=== PATIENT | male | born 1975 | race American Indian/Alaskan Native ===

== ENCOUNTER 2016-05-06 12:06 | Emergency (ER) | payer SELFPAY ==
--- NOTE | 2016-05-06 18:28 | Emergency Department Report ---
Upper Extremity - HPI Chief Complaint: Extremity Injury, Upper Stated Complaint: LT HAND FOURTH FINGER INJURY Time Seen by Provider: 05/06/16 18:20 Upper Extremity: Left Ring Finger, Right Middle Finger Occurred When: 1 Day Mechanism: Other (slammed into the car door) Symptoms: Yes Pain with Movement, Yes Swelling, Yes Bruising/Ecchymosis, No Deformity, No Limited Range of Movement, No Numbness, No Weakness, No Laceration or Abrasion Other History: Patient reports he accidental slammed both hands in a car door. ED Review of Systems ROS: Stated complaint: LT HAND FOURTH FINGER INJURY Other details as noted in HPI Constitutional: denies: chills, diaphoresis, fever, malaise, weakness Respiratory: denies: cough, orthopnea, shortness of breath, SOB with exertion, SOB at rest, stridor, wheezing Cardiovascular: denies: chest pain, palpitations, dyspnea on exertion, orthopnea , edema, syncope, paroxysmal nocturnal dyspnea Musculoskeletal: arthralgia (both hands) Skin: denies: rash, lesions, change in color, change in hair/nails, pruritus Neurological: denies: headache, weakness, numbness, paresthesias, confusion, abnormal gait, vertigo Hematological/Lymphatic: denies: easy bleeding, easy bruising, swollen glands ED Past Medical Hx - Past Medical History Previous Medical History?: No - Surgical History Past Surgical History?: No - Social History Smoking Status: Former Smoker Substance Use Type: Alcohol, Non Opiate Pain - Medications Home Medications: Home Medications Medication Instructions Recorded Confirmed Last Taken Type Ibuprofen [Motrin 800 MG tab] 800 mg PO Q8HR PRN #30 tablet 05/06/16 Unknown Rx Upper Extremity Exam - Exam General: Vital signs noted. No distress. Alert and acting appropriately. Head and Torso: No HEENT Abnormality, No Neck Tenderness, No Chest/Lungs Abnormality, No Abdominal Tenderness, No Back Tenderness Shoulder Exam: Yes Normal Range of Motion in Shoulder, No Shoulder Tenderness, No Clavicle Tenderness, No Shoulder Deformity, No AC Joint Tenderness Arm Exam: No Arm/Humerus Tenderness, No Arm Deformity Elbow: No Elbow Tenderness, No Normal Range of Motion in Elbow, No Elbow Deformity Forearm: No Forearm Tenderness, No Forearm Deformity, No Pain with Pronation, No Pain with Supination Wrist: Yes Normal ROM in Wrist, No Wrist Tenderness, No Wrist Deformity, No Snuffbox Tenderness, No Pain with Axial Thumb Compression Hand: Yes Hand Tenderness (left ring finger, right middle finger), Yes Digit Tenderness (with palpation), Yes Normal ROM in Digit(s), No Hand Deformity, No Digit(s) Deformity, No Tendon Dysfunction CMS Exam: No Broken Skin, No Normal Distal Pulses, No Normal Capillary Refill, No Normal Distal Sensation ED Course Vital Signs 05/06/16 12:19 Temperature 98.2 F Pulse Rate 94 H Respiratory 20 Rate Blood Pressure 144/98 O2 Sat by Pulse 98 Oximetry - Reevaluation(s) Reevaluation #1: 05/06/16 18:29 radiology studies ordered ED Medical Decision Making - Radiology Data Radiology results: image reviewed PROCEDURE: LEFT 4TH FINGER THREE VIEWS TECHNIQUE: Three films obtained which are AP, oblique, and lateral of the left 4th finger HISTORY: Pain after trauma. Left ring finger/slammed hand into car door COMPARISON: No prior studies are available for comparison. FINDINGS: There is no plain film evidence of fracture or dislocation. There is no significant degenerative change. IMPRESSION: There is no plain film evidence of fracture or dislocation. Right 3rd Finger Four Views IMPRESSION: There is n plain film evidence of fracture of dislocation or acute findings - Medical Decision Making During the course of ED, radiology studies were ordered. The imaging study revealed no plain p.m. evidence of fracture or dislocation or acute findings the patient was sent home with prescription for ibuprofen, instructed to follow up with selective referrals given at discharge, he verbalize understanding - Differential Diagnosis Bilateral Finger Pain, Bilateral Finger Fracture Critical care attestation.: If time is entered above; I have spent that time in minutes in the direct care of this critically ill patient, excluding procedure time. ED Disposition Clinical Impression: Pain in finger of both hands Disposition: DISCHARGED TO HOME OR SELFCARE Is pt being admited?: No Does the pt Need Aspirin: No Condition: Stable Instructions: Finger Sprain (ED) Additional Instructions: Take medication as directed. Follow up with the selective referrals given at discharge Prescriptions: Ibuprofen [Motrin 800 MG tab] 800 mg PO Q8HR PRN #30 tablet PRN Reason: Pain Referrals: PRIMARY MD BREANNE [Primary Care Provider] - 3-5 Days CINDY LEON MD [Staff Physician] - 3-5 Days Forms: Work/School Release Form(ED), Accompanied Note Time of Disposition: 21:56
[2016-05-06 18:48] VITALS: BP 144/92
--- NOTE | 2016-05-06 21:02 | XRay Report ---
FINAL REPORT PROCEDURE: LEFT 4TH FINGER THREE VIEWS TECHNIQUE: Three films obtained which are AP, oblique, and lateral of the left 4th finger HISTORY: Pain after trauma. Left ring finger/slammed hand into car door COMPARISON: No prior studies are available for comparison. FINDINGS: There is no plain film evidence of fracture or dislocation. There is no significant degenerative change. IMPRESSION: There is no plain film evidence of fracture or dislocation.
--- NOTE | 2016-05-06 21:09 | XRay Report ---
FINAL REPORT PROCEDURE: RIGHT 3RD FINGER FOUR VIEWS TECHNIQUE: Four films obtained which are AP, 2 oblique views, 1 lateral view HISTORY: Pain after trauma. Right middle finger/slammed hand into car door COMPARISON: No prior studies are available for comparison. FINDINGS: There is no plain film evidence of fracture or dislocation. There is some bony overgrowth of the head of the 3rd metacarpal. This is likely an incidental congenital or developmental variant. IMPRESSION: There is no plain film evidence of fracture or dislocation or acute finding.
== END 2016-05-06 22:01 | disposition home or self-care (01) ==
LOC: ED 12:06
DX: Z87.891 Personal history of nicotine dependence (principal); M79.645 Pain in left finger(s); X58.XXXA Exposure to other specified factors, initial encounter; Y93.89 Activity, other specified; Y92.89 Other specified places as the place of occurrence of the external cause; Y99.8 Other external cause status
CPT/HCPCS: 99283